=== PATIENT | male | born 1960 | race Hispanic/Latino ===

== ENCOUNTER 2017-11-10 19:17 | Emergency (ER) | payer MEDICAID ==
[2017-11-10 19:33] VITALS: TEMP 98; O2SAT 98
--- NOTE | 2017-11-10 20:06 | ED PDOC ---
Lower Extremity Pain/Injury Chief Complaint (Provider): right knee pain History Per: Patient History/Exam Limitations: no limitations Current Symptoms Are (Timing): Still Present Pain Scale Rating Of: 8 Additional History Per: Patient Additional Complaint(s): Patient is a 57 year old male presents with complaints of worsening left knee pain over the past 3 weeks. Just moved here from [place] today. Initially, pain began suddenly, awoke him from sleep. Currently pain in 8/10 in severity, worse with standing/ambulation, extension. He has limited ROM. No trauma, no history of knee pain/injury. Reports he was seen in ED at [facility] in [place], had XR done that showed effusion and was given hydrocodone. He took hydrocodone prior to arrival, endorses it did not help his pain. Medical history of anxiety, he denies any other medical conditions. - Hip Currently Unable To: Bear Weight, Straighten <Yasir Babcock - Last Filed: 11/10/17 22:22> <Vishnu Walters - Last Filed: 11/11/17 03:26> Chief Complaint (Nursing): Lower Extremity Problem/Injury Supervising Attending Note - Supervising Attending Note The Documented history was done by the: Physician Crew Team Member The documented physical exam was done by the: Physician Crew Team Member - Attestation: I have personally seen and examined this patient.: Yes I have fully participated in the care of the patient.: Yes I have reviewed all pertinent clinical information, including history, physical exam and plan: Yes <Vishnu Walters - Last Filed: 11/11/17 03:26> Past Medical History Reviewed: Vital Signs Vital Signs: Last Vital Signs Temp 98 F 11/10/17 19:29 Pulse 122 H 11/10/17 19:29 Resp 20 11/10/17 19:29 BP 160/118 H 11/10/17 19:29 Pulse Ox 98 11/10/17 19:29 - Medical History PMH: Anxiety - Family History Family History: States: Unknown Family Hx - Social History Current smoker - smoking cessation education provided: No Alcohol: None Drugs: Denies <Yasir Babcock - Last Filed: 11/10/17 22:22> Vital Signs: Last Vital Signs Temp 98 F 11/10/17 19:29 Pulse 102 H 11/10/17 21:00 Resp 18 11/10/17 21:00 BP 158/96 H 11/10/17 21:00 Pulse Ox 98 11/10/17 22:23 <Vishnu Walters - Last Filed: 11/11/17 03:26> - Home Medications Home Medications: Ambulatory Orders Medication Instructions Recorded Naproxen [Naprosyn] 500 mg PO Q12 #14 tab 11/10/17 - Allergies Allergies/Adverse Reactions: Allergies Allergy/AdvReac Type Severity Reaction Status Date / Time No Known Allergies Allergy Verified 11/10/17 19:29 Wells Criteria for PE - Wells Criteria for Pulmonary Embolism Clinical Signs and Symptoms of DVT: No P.E is #1 Diagnosis, or Equally Likely: No Heart Rate >100: Yes Immobilization at least 3 days;Surgery previous 4 weeks: No Previous, objectively diagnosed PE or DVT: No Hemoptysis: No Malignancy w/treatment within 6 months, or palliative: No Total Score: 1.5 <Yasir Babcock - Last Filed: 11/10/17 22:22> Review of Systems Constitutional: Negative for: Fever, Chills, Sweats, Weakness Eyes: Negative for: Vision Change ENT: Negative for: Ear Discharge, Nose Discharge, Nose Congestion Cardiovascular: Negative for: Chest Pain, Palpitations, Orthopnea Respiratory: Negative for: Cough, SOB with Exertion Gastrointestinal: Negative for: Nausea, Vomiting, Abdominal Pain, Constipation Genitourinary Male: Negative for: Dysuria, Frequency, Hematuria, Penile Discharge, Penile Pain Musculoskeletal: Negative for: Neck Pain, Shoulder Pain, Arm Pain, Back Pain, Hand Pain, Foot Pain Neurological: Negative for: Weakness, Numbness, Incoordination, Confusion Psych: Negative for: Anxiety, Depression <Yasir Babcock - Last Filed: 11/10/17 22:22> Physical Exam - Reviewed Vital Signs Reviewed: Yes - Physical Exam Appears: Positive for: No Acute Distress Head Exam: Positive for: ATRAUMATIC, NORMAL INSPECTION, NORMOCEPHALIC Skin: Positive for: Normal Color, Warm, DRY Eye Exam: Positive for: EOMI, Normal appearance, PERRL Neck: Positive for: Normal, Painless ROM Cardiovascular/Chest: Positive for: Regular Rate, Rhythm, Tachycardia Respiratory: Negative for: Accessory Muscle Use, Stridor, Wheezing, Respiratory Distress Gastrointestinal/Abdominal: Positive for: Normal Exam. Negative for: Tenderness , Distended Extremity: Positive for: Other (bilateral knees: without erythema, warmth; right knee full ROM, no tenderness; left knee : +effusion, limited ROM secondary to pain, no calf tenderness) Neurologic/Psych: Positive for: Alert, data processing consultant II-XII, Oriented, Mood/Affect ( appropriate) <Yasir Babcock - Last Filed: 11/10/17 22:22> - Laboratory Results Result Diagrams: 11/10/17 20:20 - ECG O2 Sat by Pulse Oximetry: 98 - Progress ED Course And Treament: 57 year old male with left knee pain and effusion, does not appear to be infectious etiology. possibly secondary to gout vs OA CBC URic Acid XR left knee Toradol 30mg IVP case d/w Dr. Walters Reeval at 21:00: Patient now confirming hx of gout. Pain is improved w/ Toradol 30mg IVP. Labs significant for anemia, no leukocytosis, uric acid WNL. XR reviewed Discussed labs and imaging results with the patient. <Yasir Bbacock - Last Filed: 11/10/17 22:22> - Laboratory Results Result Diagrams: 11/10/17 20:20 <Vishnu Walters - Last Filed: 11/11/17 03:26> Disposition - Disposition Disposition Time: 21:19 <Yasir Babcock - Last Filed: 11/10/17 22:22> <Vishnu Walters - Last Filed: 11/11/17 03:26> - Clinical Impression Clinical Impression: Gout attack - Disposition Referrals: [facility] [Outside] Elia Davies MD [Staff Provider] - FAMILY PROVIDER,NO [Primary Care Provider] - Condition: STABLE Prescriptions: Naproxen [Naprosyn] 500 mg PO Q12 #14 tab Instructions: Gout, Lifestyle Changes to Manage Gout Forms: [employer] (Greek)
[2017-11-10 20:41] LABS: BASO % 0.5 % (0.0-2.0); EOS # 0.1 K/uL (0.0-0.7); EOS % 0.5 % (0.0-4.0); HEMOGLOBIN 10.6 g/dL (12.0-18.0); LYMPH # 1.8 K/uL (1.0-4.3); LYMPH % 18.5 % (20.0-40.0); MEAN CELL VOLUME 86.9 fl (80.0-94.0); MEAN CORPUSCULAR HEMOGLOBIN 29.4 pg (27.0-31.0); MEAN CORPUSCULAR HGB CONC 33.9 g/dL (33.0-37.0); MEAN PLATELET VOLUME 7.6 fl (7.2-11.7); MONO % 10.1 % (0.0-10.0); NEUT % 70.4 % (50.0-75.0); RBC 3.62 Mil/uL (4.40-5.90); RED CELL DISTRIBUTION WIDTH 16.2 % (11.5-14.5); WHITE BLOOD COUNT 9.9 K/uL (4.8-10.8)
[2017-11-10 22:10] VITALS: BP 158/96; PULSE 102; RESP 18
--- NOTE | 2017-11-11 07:53 | RAD ---
HISTORY: pain, effusion COMPARISON: No prior FINDINGS: BONES: Normal. No fracture. JOINTS: Normal. No osteoarthritis. SOFT TISSUE: Normal. OTHER FINDINGS: None . IMPRESSION: Normal Bone Xray.
== END 2017-11-10 21:30 | disposition home or self-care (01) ==
LOC: H.ER 19:17
DX: M10.00 Idiopathic gout, unspecified site (principal); F41.9 Anxiety disorder, unspecified; M25.561 Pain in right knee; M25.562 Pain in left knee
CPT/HCPCS: 73562; 84550; 85025; 96374; 99283; J1885

== ENCOUNTER 2017-12-12 05:59 | Emergency (ER) | payer MEDICAID ==
[2017-12-12 06:22] VITALS: O2SAT 100
[2017-12-12] MEDS ORDERED: PROPARACAINE/FLUORESCEIN SOD 100 DROP/5 ML BOTTLE ONE (06:47)
[2017-12-12] MEDS ORDERED: PROPARACAINE/FLUORESCEIN SOD 100 DROP/5 ML BOTTLE OS STA (06:53)
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
[2017-12-12 09:56] VITALS: BP 122/76; PULSE 76; RESP 16; TEMP 97.8
== END 2017-12-12 09:54 | disposition home or self-care (01) ==
LOC: H.ER 05:59
DX: S02.2XXA Fracture of nasal bones, initial encounter for closed fracture (principal); Y04.0XXA Assault by unarmed brawl or fight, initial encounter; Y92.89 Other specified places as the place of occurrence of the external cause; J32.9 Chronic sinusitis, unspecified